=== PATIENT | male | born 1955 | race Caucasian/White ===

== ENCOUNTER 2019-11-10 14:43 | Outpatient (CLI) | payer MEDICAID, SELFPAY ==
--- NOTE | 2019-11-10 14:52 | DI.RAD_ITS ---
EXAM: XR CHEST 2V PA LATERAL CLINICAL HISTORY: Continuous chest pain R07.89 TECHNIQUE: 2D digital imaging was performed. COMPARISON: No exams were available for comparison FINDINGS: The cardiac and mediastinal contours have a normal appearance. The lungs are well inflated and clear . No infiltrate, effusion or pneumothorax is seen. No spine or rib fracture is identified. IMPRESSION: Negative chest x-ray.
== END 2019-11-10 15:03 ==
PROVIDERS: PCP Family Medicine; Visit Provider Family Medicine
DX: R07.89 Other chest pain (principal)
CPT/HCPCS: 71046

== ENCOUNTER 2019-11-27 00:13 | Outpatient (CLI) | payer MEDICAID, SELFPAY ==
--- NOTE | 2019-11-27 07:47 | ETT_ITS ---
APPROVED REPORT Exam: Exercise Treadmill Patient Location: Out-Patient Room/Bed: Stress Nurse: Kristy Asher RN BMI: 21.47 Baseline Rhythm: Sinus Rhythm Comment: left ventricular hypertrophy Indications: Atypical chest pain. Medical History Medical History: Angina Cardiac Medications: none, Allergies: No known drug allergies Cardiac Risk Factors: Smoking Pretest Chest Pain Characteristics: Non-exertional Chest pain Exercise History: Physically active Lung Sounds: Clear to auscultation Heart Sounds: Regular Stress Test Details Test: Exercise stress testing was performed using a Kayode protocol. Rest Stress HR Resting HR Supine: 53 bpm Max Heart Rate (APMHR): 158 bpm Resting HR Standin bpm Target HR (85% APMHR): 134 bpm Max HR Achieved: 146 bpm % of APMHR: 92 Recovery HR: 75 bpm HR response to stress: Normal HR response to stress BP Resting BP Supine: 140/82 mmHg Resting BP Standin/80 mmHg Max BP: 180/60 mmHg Recovery BP: 142/80 mmHg BP response to stress: Normal blood pressure response to stress. ECG Resting ECG: Sinus Rhythm Comment: Left ventricular hypertrophy Stress ECG: Sinus Tachycardia ST Change: Mild upsloping ST depression Lead(s): V4, V5 Stage: 4 Arrhythmia: None Recovery ECG: Sinus Rhythm Recovery ST Change: ST depressions returned to baseline Recovery Arrhythmia: None Clinical Reason for Termination: Fatigue Stress Symptoms: General Fatigue Exercise duration: 11 min08 sec Highest Stage Reached: Stage 4: 4.2 mph at 16% grade. Exercise capacity: 13.48 METs Functional Capacity: Above average capacity Scale: Active Stress ECG Conclusion 1. Patient exercised for 11 minutes (13 METS). Exercise was stopped due to fatigue. 2. The patient had no symptoms of ischemia during exercise. 3. There were 1.[address] depressions in the lateral leads. 4. The Lombardo Score (3) estimates an annual cardiovascular mortality of 1% and a five year survival of 94%. Using the Lombardo Score there is an intermediate probability of angiographic coronary disease. Protocol Used: Kayode Protocol Stress Test Summary STAGE Time (mins) Speed (mph) Grade (%) HR BP SYMPTOMS METS Supine 53 140/80 Standing 55 142/80 1 3 1.7 10 78 144/80 4.6 2 6 2.5 12 90 152/70 7 3 9 3.4 14 115 162/78 10.2 1 min recovery 126 180/60 3 min recovery 82 170/80 6 min recovery 75 142/80
== END 2019-11-27 00:33 ==
PROVIDERS: PCP Family Medicine; Visit Provider Family Medicine
DX: R07.89 Other chest pain (principal); I20.9 Angina pectoris, unspecified; F17.200 Nicotine dependence, unspecified, uncomplicated
CPT/HCPCS: 93017

== ENCOUNTER 2019-12-04 11:49 | Outpatient (CLI) | payer MEDICAID, SELFPAY ==
--- NOTE | 2019-12-04 11:06 | DI.RAD_ITS ---
EXAM: XR SHOULDER LT COMPLETE 2+V INDICATION: left shoulder pain. COMPARISON: No exams were available for comparison TECHNIQUE: 2D digital imaging was performed. FINDINGS: There is spurring at the AC joint. The glenohumeral joint space is well maintained. No tendon or daren int space calcifications are seen. IMPRESSION: Moderate degenerative changes of the acromioclavicular joint.
== END 2019-12-04 12:09 ==
PROVIDERS: PCP Family Medicine; Visit Provider Physician Assistant
DX: M25.512 Pain in left shoulder (principal); M19.012 Primary osteoarthritis, left shoulder
CPT/HCPCS: 73030

== ENCOUNTER 2019-12-15 02:41 | Outpatient (CLI) | payer MEDICAID, SELFPAY ==
--- NOTE | 2019-12-15 07:45 | DI.MRI_ITS ---
EXAM: MR UPPER JOINT LT WO CLINICAL HISTORY: traumatic rotator cuff injury, lt shoulder pain, M25.512. TECHNIQUE: Multiplanar multisequence MRI was performed. COMPARISON: XR SHOULDER LT COMPLETE 2+V from 12/04/2019 FINDINGS: There are degenerative changes of the AC joint with inferior spurring which may impinge on the distal supraspinatus muscle. There is some fluid in the AC joint as well as a minimal amount of fluid in t he subacromial subdeltoid bursa. There is thickening of both the supraspinatus and infraspinatus tend ons. There is some intrasubstance high signal consistent with partial tears. No full thickness tear tendon retraction is seen. There is no muscular atrophy. There is some thinning and high signal in the subscapularis tendon. There appears to be some intact fibers. The biceps tendon appears intact. No labral defects are seen. There is no joint effusion. There are a few small subchondral cysts i n the humeral head. There is no evidence of fracture. IMPRESSION: Tendinosis and partial tears involving the supraspinatus and infraspinatus tendons. Partial tear of the subscapularis tendon. DATA REPOSITORY:
== END 2019-12-15 03:01 ==
PROVIDERS: PCP Family Medicine; Visit Provider Physician Assistant
DX: S46.012A Strain of muscle(s) and tendon(s) of the rotator cuff of left shoulder, initial encounter (principal)
CPT/HCPCS: 73221

== ENCOUNTER 2020-12-13 01:00 | Outpatient (CLI) | payer MEDICAID, SELFPAY ==
--- NOTE | 2020-12-13 07:45 | DI.MRI_ITS ---
EXAM: MR UPPER JOINT LT WO CLINICAL HISTORY: Left shoulder tear,RECURRENT PAIN, M12.819,ROTATOR CUFF ARTHROPATHY. TECHNIQUE: Multiplanar multisequence MRI was performed. CONTRAST MATERIAL: Noncontrast COMPARISON: Plain films dated 04 December 2019. MRI 15 December 2019. FINDINGS: Bones: There is no fracture or contusion pattern. The AC joint shows mild inferior spurring. There may be mild inferior impingement.. A minimal amount of fluid is present in the subacromial subdeltoid bursa .. Rotator Cuff: The supraspinatus shows small focal area of high signal distally near the attachment consistent with a small partial tear. The findings are similar to the previous exam. The infraspinatus tendon shows thickening and a small amount intrasubstance signal superiorly consistent with a partial tear. Find ings are similar to the previous exam. The subscapularis and teres minor are normal. There is no m uscle atrophy. Labrum and biceps anchor: The biceps tendon is located. The anchor is well maintained. The labrum is within normal limits. IMPRESSION: Stable appearance tendinosis and partial tears of the supraspinatus and infraspinatus tendons. DATA REPOSITORY:
== END 2020-12-13 01:01 ==
LOC: DI 01:00
DX: M25.512 Pain in left shoulder (principal); M75.102 Unspecified rotator cuff tear or rupture of left shoulder, not specified as traumatic
CPT/HCPCS: 73221

== ENCOUNTER 2021-10-31 03:40 | Outpatient (CLI) | payer MEDICAID, SELFPAY ==
[2021-10-31 11:38] LABS: ALT 33 U/L (16-63); AST 23 U/L (15-37); Albumin 4.4 g/dL (3.4-5.0); Alkaline Phosphatase 83 U/L (46-116); Anion Gap 8.1 mmol/L (3-11); BUN 22 mg/dL (7-18); Bilirubin, Total 0.6 mg/dL (0.2-1.0); CO2 30.9 mmol/L (21.0-32.0); Calcium 9.6 mg/dL (8.5-10.1); Calculated LDL 132 mg/dL (<100); Chloride 102 mmol/L (98-107); Cholesterol 234 mg/dL (<200); Glucose 108 mg/dL (74-106); HDL Cholesterol 89 mg/dL (40-60); Potassium 4.2 mmol/L (3.5-5.1); Sodium 141 mmol/L (136-145); TSH (W/Ref FT4) 1.63 uIU/mL (0.36-3.74); Total Protein 7.4 g/dL (6.4-8.2); Triglyceride 68 mg/dL (<150)
[2021-10-31 17:19] LABS: PSA, Screening 11.1 ng/mL (0.0-4.5)
[2021-11-03 10:13] LABS: HIV-1/2 Ag & Ab Screen Negative (Negative)
[2021-11-03 10:45] LABS: Hepatitis C Ab w Rflx HCV PCR Negative (Negative)
== END 2021-10-31 03:41 | disposition home or self-care (01) ==
LOC: LBO 03:40
PROVIDERS: Visit Provider Family Medicine
DX: Z13.6 Encounter for screening for cardiovascular disorders (principal); I10 Essential (primary) hypertension; Z11.59 Encounter for screening for other viral diseases; Z12.5 Encounter for screening for malignant neoplasm of prostate; Z11.4 Encounter for screening for human immunodeficiency virus [HIV]
CPT/HCPCS: 36415; 80053; 80061; 84153; 86803; 87389; 84443

== ENCOUNTER 2021-11-24 01:28 | Outpatient (CLI) | payer MEDICAID, SELFPAY ==
[2021-11-24 11:45] LABS: Source Nasal/Nares
[2021-11-24 14:32] LABS: COVID-19 PCR Negative (Negative)
== END 2021-11-24 01:29 | disposition home or self-care (01) ==
LOC: LBO 01:28
PROVIDERS: Visit Provider Surgery
DX: Z20.822 Contact with and (suspected) exposure to COVID-19 (principal); Z01.818 Encounter for other preprocedural examination
CPT/HCPCS: 87635

== ENCOUNTER 2021-11-26 07:28 | Day surgery (SDC) | payer MEDICAID, SELFPAY ==
[2021-11-26] VITALS (7 sets, daily range): BP systolic 130–175; BP diastolic 61–94; PULSE 45–59; RESP 16–26; TEMP 36.1–36.4; O2SAT 98–100; BMI 22.4
--- NOTE | 2021-11-26 06:40 | W.PM.OP ---
Date of service: 11/26/21 Time of Service: 09:52 Operative Note Operative Note DATE OF PROCEDURE: 11/26/21 PRE-OP DIAGNOSIS: right inguinal hernia POST-OP DIAGNOSIS: same (right direct and indirect inguinal hernia) PROCEDURE: Right inguinal hernia repair with mesh SURGEON: Melissa Monroe [employer] ATTENDANT: Jerilyn Hairston ANESTHESIA TYPE: General LMA/ETT (Hieu Will CRNA) Refer to Anesthesia Record ESTIMATED BLOOD LOSS: 15 PATHOLOGY: none sent COMPLICATIONS: None Patient was transported to: same day Patient's condition: stable Implants: BARD Mesh: LOT- [id number] REF- [id number] 2026-02-19 Indications: Mr. Mathew is a pleasant 66-year-old gentleman who is here to discuss right inguinal hernia repair. We reviewed the anatomy using a pamphlet with pictures. I went over the surgery in detail. We discussed the complications especially that of chronic pain if the nerve is injured. Also discussed the importance of limitations to his activities for 4 weeks after surgery. We reviewed ultrasound-guided nerve block by anesthesia to help with postoperative pain. The goal is to be able to send him home on Tylenol and ibuprofen. Risks, benefits and complications have been reviewed. Complications include but are not limited to bleeding, infection, injury to vas, vessels and nerves, injury to bowel and adverse reaction to medications. Questions were entertained and answered to their satisfaction and they wished to proceed. Proceed with right inguinal hernia repair with mesh. Findings: Small direct hernia and moderate indirect hernia Procedure Description: After informed concent was obtained the patient was taken to the operating room and placed in a supine position. Monitors and SCDs were applied and a timeout was done. The patient's name, date of , procedure type, procedure site, allergies to medications, preoperative antibiotic, and DVT prophylaxis were all reviewed. Fire risk was assessed. Next anesthesia did a tap block on the right side under ultrasound guidance. Please see their separate dictation. Once anesthesia was done the abdomen was prepped and draped in a sterile surgical fashion. 0.25% Bupivocaine mixed with exparel was injected into the dermis in the right lower quadrant. An incision was made with a 10 blade in the right lower quadrant. Dissection was done with cautery through the subcutaneous tissues and Ge's fascia down to the external oblique fascia. The external ring was identified and the external oblique fascia was opened sharply through the external ring. The cut fascia was grasped with hemostats the cord structures were identified and a [place] drain was placed around them. The ilioinguinal nerve was identified and cut. The cremasteric muscle was dissected away from the cord structures using both cautery and blunt dissection. A hernia sac was identified and removed from the cord structures using blunt dissection. The hernia sac was suture ligated and amputated. The remnant was pushed back into the peritoneum. A large cord lipoma was also identified and suture ligated and amputated. A flat piece of mesh was then attached to the lacunar ligament using a 2-0 Prolene double armed suture. The mesh was secured laterally and medially with a 2-0 Prolene, with a running suture. The tails of the mesh were wrapped around the cord structures effectively cinching down the internal ring. Once the mesh was secured the tissues were irrigated with some normal saline. No bleeding was identified. Local was injected around the periosteum of the pubic symphasis. The external oblique fascia was reapproximated using 2-0 Vicryl running suture. The Ge's fascia was reapproximated using interrupted 3-0 Vicryl. The dermis was reapproximated with a running 4-0 Vicryl. The skin was cleaned and dried and skin affix was applied. The patient was woken up and taken back to recovery in stable condition. There were no immediate complications. Sponge, instrument and needle counts were correct at the end of the case x2.
--- NOTE | 2021-11-26 06:41 | PDOC.DSDIS_ITS ---
Discharge Plan Disposition Patient Disposition: HOME Condition: Good Discharge Details Reason For Visit: Right Inguinal hernia Attending Provider: Melissa Monroe Primary Care Provider: Terri Everett Home Meds and New Rx's Prescriptions: New oxycodone 5 mg tablet 5 mg PO Q6H PRNQty: 14 RF: 0 Continued multivitamin Tablet 1 tab PO DAILY RF: 0 xjpvnm-rte-ciqjiiys-C-Mn-hrb21 500-333-5 mg capsule 1 cap PO DAILY RF: 0 sildenafil 50 mg tablet 50 mg PO DAILY PRN (Reason: sexual activity) Qty: 10 RF: 5 Discharge Instructions Additional Instructions: Activity at Home after surgery: 1. Make sure you walk outside at least 4 times per day 2. You should be able to climb a flight of stairs 3. No driving while in pain or taking pain medications 4. No strenuous activity or heavy lifting for 4 weeks (open surgery) Diet, Nutrition, & wound healin. Avoid alcohol until after you are recovered from your surgery 2. Make sure to eat plenty of lean protein (meat, fish, eggs, cottage cheese, beans) 3. Eat a variety of fruits and vegetables. Eat plenty of high fiber foods to avoid constipation. 4. Drink plenty of liquids to stay hydrated and avoid constipation Pain Medications: 1. Tylenol 650mg every 6 hours as needed and Ibuprofen 600 mg every 6 hours as needed. You may alternate between the 2 medications every 3 hours 2. If a narcotic has been prescribed take as directed only for breakthrough pain For Constipation: 1. Take Milk of Magnesia or MiraLax as needed for constipation Other: 1. You may shower daily. Do not scrub the incisions 2. Do not soak the incisions for 1 week 3. You may alternate ice and heat as needed for pain and swelling Wound Care: 1. Keep the incisions clean and dry Please call our office if you develop: 1. Fevers >101.5 2. Nausea or Vomiting 3. Worsening pain 4. Redness and thick discharge from the wounds If after hours please call the Hospital at and ask to speak to the on-call surgeon Stand Alone Forms: Anesthesia Discharge Inst., Luz Marias.Nerve Block Instructions Referrals: Melissa Monroe MD [ [facility] STAFF PHYSICIAN] - 12/12/21 9:00 am Activity:: see above Remove Dressings/Wound Care:: Do Not Remove Shower/Bathe:: 24 hours Diet:: As Tolerated Discharge Orders Discharge Orders: Discharge Order (Routine); Ordered 11/26/21 Ordered By: Melissa Monroe
[2021-11-26] MEDS: Gabapentin 300 MG CAP PO (08:09)
[2021-11-26] MEDS: Celecoxib 200 MG CAP PO (08:10)
[2021-11-26] MEDS: Acetaminophen 500 MG TAB 1000 MG PO (08:11)
[2021-11-26] MEDS: Lactated Ringers 1,000 ML 80 ML IV (08:12)
--- NOTE | 2021-11-26 08:13 | W.ANESPRE ---
General Info Date of Service Date Performed: 11/26/21 Height: 5 ft 10 in Weight: 70.9 kg Body Mass Index (BMI): 22.4 Surgical Procedure: Operation Date: 11/26/21 09:55 Proposed Procedures Side Surgeon p Herniorrhaphy Inguinal Repair w/Mesh Right Melissa Monroe MD Meds Allergies and Home Medications Allergies Allergy/AdvReac Type Severity Reaction Status Date / Time No Known Allergies Allergy Verified 11/26/21 07:34 Home Medication Medication Instructions Recorded multivitamin 1 tab PO DAILY 01/15/20 cdhxairhdhj-juh-tsqxwcvi-vit 1 cap PO DAILY 09/19/21 C-Mn-hrb21 500 mg-333 mg-5 mg capsule sildenafil 50 mg tablet 50 mg PO DAILY PRN #10 tab 09/19/21 Current Visit Medications: Current Medications Generic Name Dose Route Start Last Admin Trade Name Freq PRN Reason Stop Dose Admin Acetaminophen 1,000 mg 11/26/21 06:00 11/26/21 08:11 Acetaminophen 500 Mg Tab PO 11/26/21 23:59 1,000 mg PREOP EVANGELINA Administration Celecoxib 200 mg 11/26/21 06:00 11/26/21 08:10 Celecoxib 200 Mg Cap PO 11/26/21 23:59 200 mg PREOP EVANGELINA Administration Gabapentin 300 mg 11/26/21 06:00 11/26/21 08:09 Gabapentin 300 Mg Cap PO 11/26/21 23:59 300 mg PREOP EVANGELINA Administration Ringer's Solution 1,000 mls @ 80 mls/hr 11/26/21 06:00 11/26/21 08:12 IV 12/22/21 23:59 80 mls/hr INFUSION EVANGELINA Administration Cefazolin Sodium/Dextrose 2 gm in 50 mls @ 100 mls/hr 11/26/21 06:00 Ancef Duplex IVPB 11/26/21 23:59 PREOP EVANGELINA Ondansetron HCl 4 mg/ Sodium 52 mls @ 200 mls/hr 11/26/21 06:42 Chloride IVPB Q6H PRN PRN IV Miscellaneous Supplies 1 each 11/26/21 06:00 Iv Access IV 12/22/21 23:59 DIRECTED EVANGELINA Oxycodone HCl 5 mg 11/26/21 06:42 Oxycodone 5 Mg Tab PO Q3H PRN PRN Pain Sodium Chloride 0 ml 11/26/21 06:00 Normal Saline Flush 10 Ml Syr IV 12/22/21 23:59 PRN PRN Sodium Chloride 0 ml 11/26/21 06:00 Normal Saline 10 Ml Vial IJ 12/22/21 23:59 DIRECTED PRN Sterile Water 0 ml 11/26/21 06:00 Water,Injection,Sterile 10 Ml Vial IJ 12/22/21 23:59 DIRECTED PRN PFSH Active Problems Active Problems: Problem Status Onset Code Right inguinal hernia K40.90 Shoulder pain M25.519 Elevated PSA R97.20 Hyperlipidemia E78.5 Essential hypertension I10 Personal history of nicotine dependence Z87.891 Medical History Medical History Abnormal stress test seen by cardiology who felt his cardiac risk was small. Elevated PSA 10/2021-11.1 (03/2021-out of state-PSA-9) Erectile dysfunction due to diseases classified elsewhere (02/02/17) Left rotator cuff tear (~10/2019) Rotator cuff arthropathy Bilateral. Smoker (02/02/17) 1ppd Superior labrum tcsxpedz-ur-pqwkppuvd (SLAP) tear of left shoulder Tendinitis of long head of biceps brachii of left shoulder (~10/2019) Tendonitis of left rotator cuff (~11/03/19) Possible tear Tobacco Smoking/Tobacco Use Status: Current every day Tobacco Type: cigarettes Tobacco: How many years used: 40 Quit Status: considering quitting Second hand exposure: Yes Counseling given: patient declined Alcohol Alcohol Intake: current Alcohol intake frequency: a few times a week Alcohol type: hard liquor Substance Use Substance use: Occasionally Substance use type: marijuana Vital Signs and Lab Results Vital Signs Most Recent Vital Signs in EMR: Most Recent Vital Signs Temp Pulse Resp BP Pulse Ox 36.1 C L 59 L 16 130/92 H 100 11/26/21 07:36 11/26/21 07:36 11/26/21 07:36 11/26/21 07:36 11/26/21 07:36 Lab Results Blood Type / Crossmatch: No Data to Display Complete Blood Count: No Data to Display Complete Metabolic Panel: Sodium Level 141 mmol/L (136-145) 10/31/21 10:15 10/31/21 Potassium Level 4.2 mmol/L (3.5-5.1) 10/31/21 10:15 10/31/21 Chloride Level 102 mmol/L (98-107) 10/31/21 10:15 10/31/21 Carbon Dioxide Level 30.9 mmol/L (21.0-32.0) 10/31/21 10:15 10/31/21 Blood Urea Nitrogen 22 mg/dL (7-18) H 10/31/21 10:15 10/31/21 Creatinine 1.0 mg/dL (0.70-1.30) 10/31/21 10:15 10/31/21 Estimated GFR/1.73 m2 >= 60.00 (mL/min/1.73m2) 10/31/21 10:15 10/31/21 Calcium Level 9.6 mg/dL (8.5-10.1) 10/31/21 10:15 10/31/21 Albumin 4.4 g/dL (3.4-5.0) 10/31/21 10:15 10/31/21 Glucose Level 108 mg/dL (74-106) H 10/31/21 10:15 10/31/21 Liver Function Panel: Alanine Aminotransferase (ALT/SGPT) 33 U/L (16-63) 10/31/21 10:15 10/31/21 Aspartate Amino Transf (AST/SGOT) 23 U/L (15-37) 10/31/21 10:15 10/31/21 Coagulation Panel: No Data to Display Cardiac Panel: No Data to Display Arterial Blood Gas: No Data to Display Venous Blood Gas: No Data to Display Pancreas Panel: No Data to Display Thyroid Panel: Thyroid Stimulating Hormone (TSH) 1.63 uIU/mL (0.36-3.74) 10/31/21 10:15 10/31/21 Infectious Disease: Coronavirus (COVID-19)(PCR) Negative (Negative) 11/24/21 08:53 11/24/21 Coronavirus 2019 Source Nasal/Nares 11/24/21 08:53 11/24/21 HIV (1&2) Ag and Ab, 4th Generation Negative (Negative) 10/31/21 10:15 10/31/21 Hepatitis C Antibody Negative (Negative) 10/31/21 10:15 10/31/21 Blood Cultures: No Data to Display Toxicology Panel: No Data to Display Imaging and Studies Imaging and Studies Study information below may be from another EMR and interpreted by another provider. Please see original notes in EMR for more complete details. Stress Test Summary: 12/14: 13 mets, no symptoms of ischemia. 1.[address] depression in lateral leads. intermediate probability of angiographic CAD. Anesthesia Assessment and Plan Anesthesia History Personal History: No History of Anesthesia Complications Family History: No Family History of Anesthesia Complications Exercise Tolerance Exercise Tolerance: Metabolic Equivalents>4 Cardiac & Pulmonary Exam Cardiac Exam: Normal S1/S2 Heart Sounds Pulmonary Exam: Clear Bilateral Breath Sounds Implantable Cardiac Device Does patient have a Pacemaker or an ICD?: No Airway Exam Known Difficult Airway: No Mallampati Class: 2 Mouth Opening: Narrow (< 3cm) Thyromental Distance: Less than 3 cm Facial Hair: Full Romeo Neck Range of Motion: Full ROM Neck Circumference: Normal Teeth Condition: Normal Dentition ASA Classification ASA Score: ASA 2 Emergency Case?: No NPO Status NPO Status: NPO Clears >2 hours, Solids >8 hours Anesthesia Plan Resuscitation Status: Full Code Anesthesia Technique: General Anesthesia Airway Planned: LMA Pain Management: Surgeon and patient request nerve block Monitors Used: Standard Monitors Preoperative Comments:: 66 yo male for inguinal hernia repair. Sig PMHx: smoker (tobacco/cannabis), few times a week etoh. had a stress test that was intermediate risk for CAD, but on cardiology follow up, they believe that he is low risk given his exercise tolerance 13 mets.
[2021-11-26] MEDS: ceFAZolin 2 GM/50 ML BAG IVPB (08:58)
--- NOTE | 2021-11-26 09:12 | W.ANESNERVE ---
Nerve Block Single Injection Procedure Date and Time Date Performed: 11/26/21 Procedure Start: 09:05 Location Where Procedure Performed Procedure Location: Operating Room Procedure Stop: 09:11 Reason Performed: Postoperative Analgesia Requesting Provider: Melissa Monroe Timeout Performed Timeout Performed: Yes Monitoring Used ECG, Blood Pressure, SpO2 and ETCO2 Sterility Sterility: Hand Hygiene, Surgical Cap, Surgical Mask, Sterile Gloves and Chlorhexidine Sedation Given During Procedure Sedation Given (Indicate Dose Given): No Sedation given Patient Mental Status Patient Mental Status: Performed under general anesthesia Nerve Block 1st Nerve Block: Laterality: Right Block Type: TAP Unilateral Needle / Catheter Used: 100mm SonoPlex II Local Anesthetic Bolus (Indicate Dose Given): Bupivacaine 0.375% Dose:: 20 mL and Exparel Dose:: 10 mL Additives (Indicate Dose Given): None Ultrasound: Sterile probe cover and gel used Ultrasound Image Saved?: Yes Nerve Stimulator: Not Used Paresthesia: None (na) Procedure Tolerated: No Complications Procedure Outcome: Successful Performed By: Hieu Will
[2021-11-26] MEDS: Bupivacaine 0.5% Pres-Free 30 ML VIAL (09:48)
[2021-11-26] MEDS: Bupivacaine LIPOSOME/PF 133 MG/10 ML VIAL IJ (09:48)
--- NOTE | 2021-11-26 10:38 | W.ANESPOSTOP ---
Postoperative Evaluation Date, Time and Location Date Performed: 11/26/21 Time Performed: 10:38 Patient Location: PACU Vital Signs Most Recent Imported Vital Signs: Most Recent Vital Signs Temp Pulse Resp BP Pulse Ox 36.1 C L 47 L 26 H 146/88 H 98 11/26/21 10:27 11/26/21 10:27 11/26/21 10:27 11/26/21 10:27 11/26/21 10:27 Pain Score Most Recent Pain Score: Most Recent Pain Score Pain Level 2 11/26/21 10:27 Assessment Mental Status: Awake (Alert & Oriented to Patient Baseline) Airway and Respiratory Function: Patent airway with normal (patient baseline) respiratory exam Cardiovascular Function: Hemodynamically Stable Hydration Status: Adequately Hydrated Nausea & Vomiting: No Nausea or Vomiting Pain: Pain is tolerable per patient Peripheral Nerve Block: Regional nerve block not resolved at time of post operative discharge
[2021-11-26] MEDS: oxyCODONE 5 MG TAB PO (11:25)
== END 2021-11-26 12:33 | disposition home or self-care (01) ==
LOC: SUR 07:28
PROVIDERS: Visit Provider Surgery
PROC: (CPT 49505; principal; 2021-11-26 09:45)
DX: K40.90 Unilateral inguinal hernia, without obstruction or gangrene, not specified as recurrent (principal); I10 Essential (primary) hypertension; E78.5 Hyperlipidemia, unspecified
CPT/HCPCS: 49505; 76942; C1781; J0690; J1100; J1885; J2001; J2405; J2704

== ENCOUNTER 2022-01-12 03:28 | Outpatient (CLI) | payer MEDICAID, SELFPAY ==
[2022-01-12 18:21] LABS: PSA, Diagnostic 8.4 ng/mL (0.0-4.5)
== END 2022-01-12 03:29 | disposition home or self-care (01) ==
LOC: LBO 03:28
PROVIDERS: Visit Provider Nurse Practitioner Gerontology
DX: R97.20 Elevated prostate specific antigen [PSA] (principal)
CPT/HCPCS: 36415; 84153

== ENCOUNTER 2022-02-09 01:15 | Outpatient (CLI) | payer MEDICAID, SELFPAY ==
--- NOTE | 2022-02-09 08:00 | DI.CTLCSR_ITS ---
Exam(s) CT CHEST LUNG CANCER SCREEN EXAM: CT CHEST LUNG CANCER SCREEN CLINICAL HISTORY: Screening for lung cancer,CURRENT SMOKER, F17.210 TECHNIQUE: Imaging Protocol: Axial computed tomography images with coronal and sagittal reformatted images were created and reviewed COMPARISON: CR XR CHEST 2V PA LATERAL from 11/10/2019 FINDINGS: Tracheobronchial tree: Patent where visualized. Mediastinum and Kenisha: No dominant adenopathy or fluid collection. Pulmonary parenchyma: No consolidation or dominant measurable mass. No architectural distortion. Lung Nodules: None. Pleura: No effusion or pneumothorax. Mild noncalcified pleural plaques. Heart: The heart is not dilated. coronary artery calcifications are seen. Aorta: Thoracic aorta non-dilated. Upper abdomen: Unremarkable. Bones: Mild degenerative disc changes. Soft Tissues: Unremarkable. IMPRESSION: No evidence of pulmonary nodules. Mild noncalcified bilateral pleural plaques. Lung RADS Cat 1 - Negative: No nodules and definitely benign nodules Lung-RADS 1.0 CATEGORIES: Category 0 - Prior chest CT exam(s) being located for comparison. Category 1 - Annual screening in 12 months. No nodules or definitely benign nodules. Category 2 - Annual screening in 12 months. Benign appearance. Nodules with low likelihood of becomin g active cancer. Category 3 - 6-month follow-up. Probably benign. Short-term follow-up suggested. Nodules with low lik elihood of becoming active cancer. Category 4A - 3-month follow-up and CT/PET if >8 mm in size. Suspicious finding. Findings which requi re additional testing. Category 4B - Findings which require additional testing and tissue sampling. Category 4X - Category 3 or 4 nodules with additional features or imaging findings that increases the suspicion of malignancy. Modifier S- Potentially clinically significant findings (non lung cancer) RADIATION DOSE DELIVERED: 84.46mGy.cm Total DLP 1.84mGyCTDIvol DATA REPOSITORY: All CT scans at this facility are submitted to the National Radiology Data Registry (NRDR) Dose Index Registry (DIR) with the [employer] (ACR). RADIATION OPTIMIZATION: All CT scans at this facility use at least one of these dose optimization te chniques: automated exposure control; mA and/or kV adjustment per patient size (includes targeted exa ms where dose is matched to clinical indication); or iterative reconstruction.
== END 2022-02-09 01:35 ==
PROVIDERS: Visit Provider Family Medicine
DX: Z12.2 Encounter for screening for malignant neoplasm of respiratory organs (principal); F17.210 Nicotine dependence, cigarettes, uncomplicated; J92.9 Pleural plaque without asbestos
CPT/HCPCS: 71271

== ENCOUNTER 2022-09-14 02:48 | Outpatient (CLI) | payer MEDICAID, SELFPAY ==
[2022-09-14 18:21] LABS: PSA, Diagnostic 8.5 ng/mL (<=4.5)
== END 2022-09-14 02:49 | disposition home or self-care (01) ==
LOC: LBO 02:48
PROVIDERS: PCP Nurse Practitioner Family; Visit Provider Nurse Practitioner Gerontology
DX: R97.20 Elevated prostate specific antigen [PSA] (principal)
CPT/HCPCS: 36415; 84153

== ENCOUNTER 2022-11-02 09:54 | Day surgery (SDC) | payer MEDICAID, SELFPAY ==
[2022-11-02 10:25] VITALS: BP 162/81; PULSE 50; RESP 16; TEMP 36.2; O2SAT 100
--- NOTE | 2022-11-02 10:25 | W.COLOREPORT ---
Date of service: 11/02/22 Time of Service: 11:47 Colonoscopy Report Procedure Description: Procedures performed: 1. Colonoscopy 2. Hot snare polypectomy x3 3. Endoscopic clip placement 4. Cold forceps polypectomy 2 5. Fulguration/ablation/destruction of polyp x1 Preoperative diagnosis: Screening colonoscopy Postoperative diagnosis: Colon polyps, sigmoid diverticulosis Surgeon: Nory Colon Anesthesia: [place] Indication for procedure: 67-year-old man does not have any symptoms and has never had a screening colonoscopy before. There is no family history of colon cancer but his sister has had adenomatous polyps removed. Surgical history includes inguinal hernia repair. Findings: Normal terminal ileum.? Normal right colon. Normal transverse colon. The left colon starts having diverticular disease in the descending portion and the sigmoid portion has moderate diverticular disease but no active diverticulitis or stricture was seen. Normal rectum. Multiple polyps were found as follows: In the proximal sigmoid colon a flat, sessile 5-7 mm polyp was removed with hot snare technique. The excision defect seemed unusually large/deep and so a single clip was placed to approximate the mucosal edges and this was very nicely effective. A small 2-3 mm polyp was removed with cold forceps technique from the sigmoid colon but this 1 did appear hyperplastic. Another polyp from the sigmoid colon was removed with cold forceps technique and this colon looked adenomatous and was about 3-5 mm in size. The residual polyp remaining after biopsy was fulgurated with the tip of the hot snare. In the proximal rectum a 5-7 mm sessile polyp was removed with hot snare technique. Further distal in the rectum another adenomatous?appearing polyp was removed with hot snare technique and about 5-7 mm in size. Surveillance/follow-up recommendations: 3 years. The Col[employer] considers adenomatous polyps in a first-degree relative equal risk to that of colon cancer in a first-degree relative and surveillance intervals are recommended to be no longer than every 5 years. Complications: None Blood loss: Minimal Prep: Excellent Procedure in detail: Written consent was obtained from the patient who was in agreement with the risks, benefits and indications of the procedure.? We went to the endoscopy suite and laid the patient in left lateral decubitus position.? Anesthesia was administered which was tolerated well.? A timeout was performed and when we are all in agreement we began the procedure. Digital rectal exam and visual examination was performed and within normal limits.? A well?lubricated colonoscope was advanced without difficulty all the way to the cecum identified by the ileocecal valve, and triangular folds and appendiceal orifice.? Terminal ileum was normal.? It was then slowly withdrawn.?? Retroflexion was performed in the rectum.? The findings/interventions are noted above. The scope was then removed and the patient tolerated the procedure well and was then taken back to the PACU in hemodynamically stable condition.
--- NOTE | 2022-11-02 10:38 | W.ANESPRE ---
General Info Date of Service Date Performed: 11/02/22 Height: 5 ft 10.87 in Weight: 70.9 kg Body Mass Index (BMI): 21.9 Surgical Procedure: Operation Date: 11/02/22 11:50 Proposed Procedure Side Surgeon p Colonoscopy Eugenio Colon MD Meds Allergies and Home Medications Allergies Allergy/AdvReac Type Severity Reaction Status Date / Time No Known Allergies Allergy Verified 11/02/22 10:23 Home Medication Medication Instructions Recorded multivitamin 1 tab PO DAILY 01/15/20 sildenafil 50 mg tablet 50 mg PO DAILY PRN sexual activity 09/19/21 #10 tabs bisacodyl 5 mg tablet,delayed 5 mg PO ONCE colonscopy bowel prep 10/23/22 release (Dulcolax (bisacodyl)) #4 tabs polyethylene glycol 3350 17 238 g PO ONCE colonoscopy prep 10/23/22 gram/dose oral powder #238 grams glucosamine sulf dipot 1 cap PO DAILY 10/30/22 chlr,msm,chond 550 mg-C 30 mg-julia 1 mg capsule (Glucosamine Chondroitin) Current Visit Medications: Current Medications Generic Name Dose Route Start Last Admin Trade Name Freq PRN Reason Stop Dose Admin Ringer's Solution 1,000 mls @ 80 mls/hr 11/02/22 06:00 IV 11/24/22 23:59 INFUSION EVANGELINA IV Miscellaneous Supplies 1 each 11/02/22 06:00 Iv Access IV 11/24/22 23:59 DIRECTED EVANGELINA Sodium Chloride 0 ml 11/02/22 06:00 Normal Saline Flush 10 Ml Syr IV 11/24/22 23:59 PRN PRN Sodium Chloride 0 ml 11/02/22 06:00 Normal Saline 10 Ml Vial IJ 11/24/22 23:59 DIRECTED PRN Sterile Water 0 ml 11/02/22 06:00 Water,Injection,Sterile 10 Ml Vial IJ 11/24/22 23:59 DIRECTED PRN PFSH Active Problems Active Problems: Problem Status Onset Code Shoulder pain M25.519 Elevated PSA R97.20 Hyperlipidemia E78.5 Essential hypertension I10 Personal history of nicotine dependence Z87.891 Medical History Medical History Abnormal stress test seen by cardiology who felt his cardiac risk was small. Elevated PSA 10/2021-11.1 (03/2021-out of state-PSA-9) Erectile dysfunction due to diseases classified elsewhere (02/02/17) Left rotator cuff tear (~10/2019) Rotator cuff arthropathy Bilateral. Smoker (02/02/17) 1ppd Superior labrum ueqgkoal-gi-jyjxwwmpy (SLAP) tear of left shoulder Tendinitis of long head of biceps brachii of left shoulder (~10/2019) Tendonitis of left rotator cuff (~11/03/19) Possible tear Medical History Comments:: Anne Marie daily Surgical History Surgical History Hx of arthroscopic knee surgery Left knee. S/P cataract extraction and insertion of intraocular lens Left eye. S/P inguinal hernia repair using synthetic patch (~11/26/21) Tobacco Smoking/Tobacco Use Status: Current every day Tobacco Type: cigarettes Second hand exposure: Yes Counseling given: patient declined Alcohol Alcohol Intake: current Alcohol intake frequency: a few times a week Alcohol type: hard liquor Substance Use Substance use: Daily Substance use type: marijuana Vital Signs and Lab Results Vital Signs Most Recent Vital Signs in EMR: Most Recent Vital Signs Temp Pulse Resp BP Pulse Ox 36.2 C L 50 L 16 162/81 H 100 11/02/22 10:25 11/02/22 10:25 11/02/22 10:25 11/02/22 10:25 11/02/22 10:25 Lab Results Blood Type / Crossmatch: No Data to Display Complete Blood Count: No Data to Display Complete Metabolic Panel: No Data to Display Liver Function Panel: No Data to Display Coagulation Panel: No Data to Display Cardiac Panel: No Data to Display Arterial Blood Gas: No Data to Display Venous Blood Gas: No Data to Display Pancreas Panel: No Data to Display Thyroid Panel: No Data to Display Infectious Disease: No Data to Display Blood Cultures: No Data to Display Toxicology Panel: No Data to Display Imaging and Studies Imaging and Studies Study information below may be from another EMR and interpreted by another provider. Please see original notes in EMR for more complete details. Stress Test Summary: 12/14: 13 mets, no symptoms of ischemia. 1.[address] depression in lateral leads. intermediate probability of angiographic CAD. Anesthesia Assessment and Plan Anesthesia History Personal History: No History of Anesthesia Complications Family History: No Family History of Anesthesia Complications Exercise Tolerance Exercise Tolerance: Metabolic Equivalents>4 Pertinent Negatives Pertinent Negatives: No Symptoms of GERD Cardiac & Pulmonary Exam Cardiac Exam: Normal S1/S2 Heart Sounds Pulmonary Exam: Clear Bilateral Breath Sounds Implantable Cardiac Device Does patient have a Pacemaker or an ICD?: No Airway Exam Known Difficult Airway: No Mallampati Class: 2 Mouth Opening: Narrow (< 3cm) Thyromental Distance: Less than 3 cm Neck Range of Motion: Full ROM Neck Circumference: Normal Teeth Condition: Normal Dentition ASA Classification ASA Score: ASA 2 Emergency Case?: No NPO Status NPO Status: NPO Clears >2 hours, Solids >8 hours Anesthesia Plan Resuscitation Status: Full Code Anesthesia Technique: General Anesthesia Airway Planned: Natural Airway Monitors Used: Standard Monitors Preoperative Comments:: Low risk per cardiology
[2022-11-02 10:40] VITALS: BMI 21.9
[2022-11-02] MEDS: Lactated Ringers 1,000 ML 80 ML IV (10:44)
--- NOTE | 2022-11-02 11:24 | BOWEL_PTH ---
PATIENT: Daniele Mathew LOC: [facility] U#:[id number] AGE/SX: 67/M ROOM: RE11/02/[address]: Eugenio Colon : 1955 BED: DIS: 11/02/2022 SPEC #: [id number] RECD: 11/02/22 12:51 STATUS: ARAM REQ #: [id number] URSULA: 11/02/22 11:[address]: Eugenio Colon DEPT: Surgical Specimen RECD BY: Mela Dixon ENTERED: 11/02/22 12:53 SP TYPE: Bowel OTHR DR: Omar Baron DNP Tissues: 1 - BIOPSY BOWEL 2 - BIOPSY BOWEL 3 - BIOPSY BOWEL 4 - BIOPSY BOWEL 5 - BIOPSY BOWEL Procedures: GROSS AND MICRO LEVEL 4 Comments: [id number]
[2022-11-02 11:50] VITALS: BP 136/73; PULSE 48; RESP 16; TEMP 36.4; O2SAT 98
[2022-11-02 12:07] VITALS: BP 165/80; PULSE 50; RESP 16; TEMP 36.7; O2SAT 97
--- NOTE | 2022-11-02 12:28 | W.ANESPOSTOP ---
Postoperative Evaluation Date, Time and Location Date Performed: 11/02/22 Time Performed: 12:29 Patient Location: Day Surgery Unit Vital Signs Most Recent Imported Vital Signs: Most Recent Vital Signs Temp Pulse Resp BP Pulse Ox 36.7 C 50 L 16 165/80 H 97 11/02/22 12:07 11/02/22 12:07 11/02/22 12:07 11/02/22 12:07 11/02/22 12:07 Pain Score Most Recent Pain Score: Most Recent Pain Score Pain Level 0 11/02/22 12:07 Assessment Mental Status: Awake (Alert & Oriented to Patient Baseline) Airway and Respiratory Function: Patent airway with normal (patient baseline) respiratory exam Cardiovascular Function: Hemodynamically Stable Hydration Status: Adequately Hydrated Nausea & Vomiting: No Nausea or Vomiting Pain: Pt. Denies Any Pain Peripheral Nerve Block: Patient did not receive a nerve block
== END 2022-11-02 12:32 | disposition home or self-care (01) ==
PROVIDERS: PCP Nurse Practitioner Family; Visit Provider Student in an Organized Health Care Education/Training Program
PROC: 0DJD8ZZ Inspection of Lower Intestinal Tract, Via Natural or Artificial Opening Endoscopic (ICD-10-PCS; CPT 45378; principal; 2022-11-02 11:45)
DX: Z12.11 Encounter for screening for malignant neoplasm of colon (principal); K63.5 Polyp of colon; K57.30 Diverticulosis of large intestine without perforation or abscess without bleeding; K62.1 Rectal polyp
CPT/HCPCS: 45385; 45380; 45384; 88305

== ENCOUNTER 2023-01-18 02:28 | Outpatient (CLI) | payer MEDICAID, SELFPAY ==
[2023-01-18 14:36] LABS: ALT 35 U/L (16-63); AST 19 U/L (15-37); Albumin 4.2 g/dL (3.4-5.0); Alkaline Phosphatase 87 U/L (46-116); Anion Gap 6.5 mmol/L (3-11); BUN 19 mg/dL (7-18); Bilirubin, Total 0.4 mg/dL (0.2-1.0); CO2 28.5 mmol/L (21.0-32.0); CREATININE 0.9 mg/dL (0.70-1.30); Calcium 9.1 mg/dL (8.5-10.1); Calculated LDL 128 mg/dL (<100); Chloride 102 mmol/L (98-107); Cholesterol 224 mg/dL (<200); Estimated GFR 94.78 (mL/min/1.73m2); Glucose 95 mg/dL (74-106); HDL Cholesterol 66 mg/dL (40-60); Potassium 4.1 mmol/L (3.5-5.1); Sodium 137 mmol/L (136-145); Total Protein 7.7 g/dL (6.4-8.2); Triglyceride 152 mg/dL (<150)
== END 2023-01-18 02:29 | disposition home or self-care (01) ==
LOC: LBO 02:28
PROVIDERS: PCP Nurse Practitioner Family; Visit Provider Nurse Practitioner Family
DX: I10 Essential (primary) hypertension (principal); E78.5 Hyperlipidemia, unspecified
CPT/HCPCS: 36415; 80053; 80061

== ENCOUNTER 2023-03-15 02:02 | Outpatient (CLI) | payer MEDICAID, SELFPAY ==
[2023-03-15 08:39] LABS: Calculated LDL 134 mg/dL (<100); Cholesterol 219 mg/dL (<200); HDL Cholesterol 69 mg/dL (40-60); Triglyceride 84 mg/dL (<150)
== END 2023-03-15 02:03 | disposition home or self-care (01) ==
LOC: LBO 02:02
PROVIDERS: PCP Nurse Practitioner Family; Visit Provider Nurse Practitioner Gerontology
DX: E78.5 Hyperlipidemia, unspecified (principal); R97.20 Elevated prostate specific antigen [PSA]
CPT/HCPCS: 36415; 80061; 84153

== ENCOUNTER 2023-09-13 04:09 | Outpatient (CLI) | payer MEDICAID, SELFPAY ==
[2023-09-13 19:29] LABS: PSA, Screening 10.7 ng/mL (<=4.5)
== END 2023-09-13 04:10 | disposition home or self-care (01) ==
LOC: LBO 04:10
PROVIDERS: PCP Nurse Practitioner Family; Visit Provider Nurse Practitioner Gerontology
DX: R97.20 Elevated prostate specific antigen [PSA] (principal); Z12.5 Encounter for screening for malignant neoplasm of prostate
CPT/HCPCS: 36415; 84153

== ENCOUNTER 2024-05-03 02:27 | Outpatient (CLI) | payer MEDICARE, SELFPAY ==
[2024-05-05 10:07] LABS: PSA, Diagnostic 10.4 ng/mL (<=4.5)
== END 2024-05-03 02:28 | disposition home or self-care (01) ==
LOC: LBO 02:27
PROVIDERS: Nurse Practitioner Gerontology; PCP Nurse Practitioner Family; Visit Provider Urology
DX: R97.20 Elevated prostate specific antigen [PSA] (principal)
CPT/HCPCS: 36415; 84153

== ENCOUNTER → 2024-05-12 09:52 | Outpatient (BNVA) | payer MEDICARE, SELFPAY | PROVIDERS: PCP Nurse Practitioner Family; Visit Provider Urology | DX: N42.89 Other specified disorders of prostate (principal); R97.20 Elevated prostate specific antigen [PSA] | CPT/HCPCS: 99213 ==

== ENCOUNTER 2024-11-06 12:28 | Outpatient (CLI) | payer MEDICARE, SELFPAY ==
[2024-11-06 22:31] LABS: PSA, Diagnostic 12.7 ng/mL (<=4.5)
== END 2024-11-06 12:29 | disposition home or self-care (01) ==
LOC: LBO 12:31
PROVIDERS: PCP Nurse Practitioner Family; Visit Provider Urology
DX: R97.20 Elevated prostate specific antigen [PSA] (principal)
CPT/HCPCS: 36415; 84153

== ENCOUNTER → 2024-11-27 09:56 | Outpatient (BNVA) | payer MEDICARE, SELFPAY | PROVIDERS: PCP Nurse Practitioner Family; Referring Provider Nurse Practitioner Family; Visit Provider Urology | DX: N42.89 Other specified disorders of prostate (principal); R97.20 Elevated prostate specific antigen [PSA] | CPT/HCPCS: 99214 ==

== ENCOUNTER → 2025-01-16 14:48 | Outpatient (BNVA) | payer MEDICARE, SELFPAY | PROVIDERS: PCP Nurse Practitioner Family; Referring Provider Nurse Practitioner Family; Visit Provider Urology | DX: R97.20 Elevated prostate specific antigen [PSA] (principal) | CPT/HCPCS: 99213 ==

== ENCOUNTER 2025-07-20 03:57 | Outpatient (CLI) | payer MEDICARE, SELFPAY ==
[2025-07-20 17:39] LABS: PSA, Diagnostic 10.3 ng/mL (<=4.5)
== END 2025-07-20 03:58 | disposition home or self-care (01) ==
LOC: LBO 03:57
PROVIDERS: PCP Nurse Practitioner Family; Visit Provider Urology
DX: R97.20 Elevated prostate specific antigen [PSA] (principal)
CPT/HCPCS: 36415; 84153

== ENCOUNTER → 2025-07-27 13:57 | Outpatient (BNVA) | payer MEDICARE, SELFPAY | PROVIDERS: PCP Nurse Practitioner Family; Referring Provider Nurse Practitioner Family; Visit Provider Urology | DX: R97.20 Elevated prostate specific antigen [PSA] (principal) | CPT/HCPCS: 99213 ==